=== PATIENT | male | born 1935 | race Caucasian/White ===

== ENCOUNTER 2021-09-01 04:24 | Inpatient (IN) ==
[2021-09-01] MEDS ORDERED: Tdap (Boostrix) Vaccine 0.5 ML SYRINGE IM ONE (04:52)
[2021-09-01] MEDS ORDERED: *HR* FentaNYL (PF) 100 MCG/2 ML VIAL IVP ONE ×2 (04:52→06:11)
[2021-09-01 05:16] LABS: Basophils % 0.4 %; Eosinophils # 0.1 K/mcL (0.0-0.6); Eosinophils % 2.9 %; Hematocrit 37.2 % (37.5-50.1); Hemoglobin 12.5 g/dL (12.9-16.9); Immature Granulocytes % 0.4 % (0-4); Lymphocytes # 1.2 K/mcL (0.6-4.6); Lymphocytes % 24.2 %; Mean Corpuscular HGB Conc 33.6 g/dL (31.6-35.5); Mean Corpuscular Hemoglobin 34.5 pg (28.0-33.3); Mean Corpuscular Volume 102.8 fL (83.0-100.0); Mean Platelet Volume 10.2 fL (9.4-12.4); Monocytes # 0.3 K/mcL (0.0-1.3); Neutrophils # 3.1 K/mcL (1.6-8.9); Platelet Count 101 K/mcL (140-400); Red Blood Count 3.62 M/mcL (4.19-5.50); Red Cell Distribution Width 12.8 % (11.5-14.5); Segmented Neutrophils % 65.1 %; White Blood Count 4.8 K/mcL (4.3-11.1)
[2021-09-01 05:31] LABS: INR 2.1; Prothrombin Time 23.7 Seconds (9.4-12.1)
[2021-09-01 05:33] LABS: Activated Partial Thrombo Time 36.7 Seconds (26.0-36.0)
[2021-09-01 05:37] LABS: Alanine Aminotransferase 11 Units/L (7-52); Albumin 4.2 g/dL (3.5-5.7); Albumin/Globulin Ratio 2.2 (1.1-2.2); Alkaline Phosphatase 63 Units/L (34-104); Aspartate Amino Transferase 17 Units/L (13-39); BUN/Creatinine Ratio 12 (6-26); Bilirubin,Direct 0.2 mg/dL (0.0-0.2); Bilirubin,Indirect 0.7 mg/dL (0.0-1.0); Bilirubin,Total 0.9 mg/dL (0.3-1.0); Blood Urea Nitrogen 13 mg/dL (8-23); Calcium 9.5 mg/dL (8.6-10.3); Carbon Dioxide 28 mEq/L (23-29); Chloride 104 mEq/L (98-107); Globulin 1.9 g/dL (2.4-3.5); Glucose 145 mg/dL (70-105); Osmolality,Calculated 289 (280-300); Potassium 3.5 mEq/L (3.5-5.1); Sodium 138 mEq/L (136-145); Total Protein 6.1 g/dL (6.4-8.9); Troponin I < 0.03 ng/mL (< 0.04); eGFR For African Americans > 60 (> 60); eGFR For Non-African Americans > 60 (> 60)
[2021-09-01] MEDS ORDERED: *HR* HYDROcodone/Acet 5/325 mg TABLET PO PRN (08:38)
[2021-09-01] MEDS ORDERED: Ondansetron 4 MG/2 ML VIAL IVP PRN (08:38)
[2021-09-01] MEDS ORDERED: Acetaminophen 325 MG TABLET PO PRN (08:38)
[2021-09-01] MEDS ORDERED: Naloxone 0.4 MG/ML INJ IVP PRN (08:38)
[2021-09-01] MEDS ORDERED: Melatonin 3 MG TABLET PO PRN (08:38)
[2021-09-01] MEDS: 0.9 % Sodium Chloride 1,000 ML IVC SCH (10:08)
[2021-09-01] MEDS: *HR* OxyCODONE Immed Rel 5 MG TABLET PO PRN ×2 (10:08→18:27)
[2021-09-01] MEDS ORDERED: Perflutren Lipid Microsphere 1.3 ML in 0.9 % Sodium Chloride 8.7 ML IVP PRN (11:31)
[2021-09-01] MEDS ORDERED: *HR* HYDROmorphone (PF) 1 MG/ML SYRINGE IVP ONE (14:15)
[2021-09-01] MEDS ORDERED: Nitroglycerin 0.4 MG TAB.SUBL SL PRN (18:09)
[2021-09-01] MEDS ORDERED: Acetaminophen IV 1,000 MG/100 ML BAG IVPB ONE (18:29)
[2021-09-01] MEDS: traZODone 50 MG TABLET PO SCH (21:19)
[2021-09-01] MEDS: clonazePAM 0.5 MG TABLET PO SCH (21:19)
[2021-09-01] MEDS: Levothyroxine 25 MCG TABLET PO SCH (21:19)
[2021-09-02] MEDS: *HR* OxyCODONE Immed Rel 5 MG TABLET PO PRN (00:29)
[2021-09-02] MEDS: 0.9 % Sodium Chloride 1,000 ML IVC SCH (02:24)
[2021-09-02 06:08] LABS: Basophils % 0.4 %; Eosinophils % 0.8 %; Immature Granulocytes % 0.4 % (0-4); Mean Corpuscular Hemoglobin 34.8 pg (28.0-33.3); Red Cell Distribution Width 12.9 % (11.5-14.5)
[2021-09-02 06:10] LABS: Hematocrit 26.2 % (37.5-50.1); Hemoglobin 8.7 g/dL (12.9-16.9); Immature Platelets 4.5 % (1.1-6.1); Lymphocytes # 0.8 K/mcL (0.6-4.6); Lymphocytes % 15.4 %; Mean Corpuscular HGB Conc 33.2 g/dL (31.6-35.5); Mean Corpuscular Volume 104.8 fL (83.0-100.0); Mean Platelet Volume 10.7 fL (9.4-12.4); Monocytes # 0.7 K/mcL (0.0-1.3); Monocytes % 13.5 %; Neutrophils # 3.7 K/mcL (1.6-8.9); Segmented Neutrophils % 69.5 %; White Blood Count 5.3 K/mcL (4.3-11.1)
[2021-09-02 06:18] LABS: INR 1.5; Prothrombin Time 16.2 Seconds (9.4-12.1)
[2021-09-02 06:49] LABS: Platelet Count 86 K/mcL (140-400)
[2021-09-02 06:51] LABS: Platelet Estimate Slight Decrease (Normal)
[2021-09-02 08:03] LABS: Alanine Aminotransferase 10 Units/L (7-52); Albumin 3.4 g/dL (3.5-5.7); Albumin/Globulin Ratio 2.3 (1.1-2.2); Alkaline Phosphatase 42 Units/L (34-104); Aspartate Amino Transferase 22 Units/L (13-39); BUN/Creatinine Ratio 19 (6-26); Bilirubin,Total 1.2 mg/dL (0.3-1.0); Blood Urea Nitrogen 18 mg/dL (8-23); Calcium 8.8 mg/dL (8.6-10.3); Carbon Dioxide 26 mEq/L (23-29); Chloride 105 mEq/L (98-107); Chol/HDL Ratio 2.2 (0-4.9); Cholesterol 63 mg/dL (< 200); Globulin 1.5 g/dL (2.4-3.5); Glucose 120 mg/dL (70-105); HDL Cholesterol 29 mg/dL (40-59); LDL Cholesterol,Calculated 22 mg/dL (< 100); Magnesium 1.8 mg/dL (1.6-2.6); Osmolality,Calculated 285 (280-300); Potassium 3.7 mEq/L (3.5-5.1); Sodium 136 mEq/L (136-145); Total Protein 4.9 g/dL (6.4-8.9); Triglycerides 60 mg/dL (< 150); eGFR For African Americans > 60 (> 60); eGFR For Non-African Americans > 60 (> 60)
[2021-09-02] MEDS ORDERED: DilTIAZem CD (24hr) 240 MG CAP.ER.24H PO SCH (09:00)
[2021-09-02] MEDS ORDERED: lisinopriL 20 MG TABLET PO SCH (09:00)
[2021-09-02] MEDS: Cholecalciferol (D-3) 1,000 UNIT (25MCG) TABLET PO SCH (09:04)
[2021-09-02] MEDS: clonazePAM 0.5 MG TABLET PO SCH ×2 (09:04→21:41)
[2021-09-02 09:26] LABS: Hematocrit 26.1 % (37.5-50.1); Hemoglobin 8.7 g/dL (12.9-16.9)
[2021-09-02 10:32] LABS: % Iron Saturation 14 % (20-55); Ferritin 77 ng/mL (20-250); Iron 42 mcg/dL (65-175); Transferrin 207 mg/dL (203-362)
[2021-09-02] MEDS ORDERED: *HR* Propofol 200 MG/20 ML VIAL IVP ONE (10:44)
[2021-09-02] MEDS ORDERED: *HR* FentaNYL (PF) 100 MCG/2 ML VIAL ONE (10:44)
[2021-09-02] MEDS ORDERED: Lidocaine -MPF 2% 2 ML VIAL ONE ×2 (10:50→11:14)
[2021-09-02] MEDS ORDERED: *HR* Rocuronium Bromide 50 MG/5 ML VIAL ONE (10:50)
[2021-09-02] MEDS ORDERED: Ondansetron 4 MG/2 ML VIAL ONE (10:50)
[2021-09-02] MEDS ORDERED: *HR* Phenylephrine 10 MG/ML VIAL ONE (10:58)
[2021-09-02] MEDS ORDERED: Heparin 1,000 UNITS/500 mL 500 ML ONE (11:07)
[2021-09-02] MEDS ORDERED: CeFAZolin Syr 2,000MG/20 ML 2,000 MG/20 ML SYRINGE IVPB ONE (11:35)
[2021-09-02] MEDS ORDERED: *HR* Etomidate 40 MG/20 ML VIAL IVP ONE (11:39)
[2021-09-02] MEDS ORDERED: Ringers Solution, Lactated 1,000 ML IVC SCH (11:45)
[2021-09-02] MEDS ORDERED: *HR* Vasopressin 20 UNIT/ML VIAL ONE (12:30)
[2021-09-02] MEDS ORDERED: Sugammadex Sodium 200 MG/2 ML VIAL IV ONE (13:18)
[2021-09-02] MEDS ORDERED: *HR* OxyCODONE Immed Rel 5 MG TABLET PO PRN (13:32)
[2021-09-02] MEDS ORDERED: Acetaminophen 325 MG TABLET PO PRN (13:32)
[2021-09-02] MEDS ORDERED: Ondansetron 4 MG/2 ML VIAL IVP PRN ×2 (13:32→14:01)
[2021-09-02] MEDS ORDERED: Albuterol 2.5 MG/3 ML NEBULIZER IH PRN (14:01)
[2021-09-02] MEDS ORDERED: Naloxone 0.4 MG/ML INJ IVP PRN (14:01)
[2021-09-02] MEDS ORDERED: *HR* Meperidine 25 MG/ML SYRINGE IVP PRN (14:01)
[2021-09-02] MEDS: *HR* HYDROmorphone PF 0.5 MG/0.5 ML SYRINGE IVP PRN ×4 (14:09→14:39)
[2021-09-02] MEDS: *HR* Metoprolol 5 MG/5 ML VIAL IVP PRN ×2 (14:20→14:32)
[2021-09-02] MEDS: CeFAZolin 2 GM/120 ML BAG IVPB SCH (16:56)
[2021-09-02 17:09] LABS: Hematocrit 24.8 % (37.5-50.1)
[2021-09-02 17:11] LABS: Hemoglobin 8.2 g/dL (12.9-16.9)
[2021-09-02 17:52] LABS: Folate 10.7 ng/mL (3.0-16.0)
[2021-09-02] MEDS: traZODone 50 MG TABLET PO SCH (21:41)
[2021-09-02] MEDS: Levothyroxine 25 MCG TABLET PO SCH (21:41)
[2021-09-02 22:59] LABS: Hematocrit 22.7 % (37.5-50.1); Hemoglobin 7.5 g/dL (12.9-16.9)
[2021-09-03] MEDS: CeFAZolin 2 GM/120 ML BAG IVPB SCH (00:11)
[2021-09-03] MEDS: *HR* OxyCODONE Immed Rel 5 MG TABLET PO PRN (03:36)
[2021-09-03 03:47] LABS: Hematocrit 24.8 % (37.5-50.1)
[2021-09-03 03:49] LABS: Hemoglobin 8.2 g/dL (12.9-16.9); Immature Platelets 6.2 % (1.1-6.1); Mean Corpuscular HGB Conc 33.1 g/dL (31.6-35.5); Mean Corpuscular Hemoglobin 34.7 pg (28.0-33.3); Mean Corpuscular Volume 105.1 fL (83.0-100.0); Red Blood Count 2.36 M/mcL (4.19-5.50); White Blood Count 9.1 K/mcL (4.3-11.1)
[2021-09-03 03:59] LABS: INR 1.2; Prothrombin Time 13.8 Seconds (9.4-12.1)
[2021-09-03 04:41] LABS: BUN/Creatinine Ratio 20 (6-26); Blood Urea Nitrogen 21 mg/dL (8-23); Calcium 9.1 mg/dL (8.6-10.3); Carbon Dioxide 27 mEq/L (23-29); Chloride 103 mEq/L (98-107); Glucose 150 mg/dL (70-105); Osmolality,Calculated 286 (280-300); Potassium 4.8 mEq/L (3.5-5.1); Sodium 135 mEq/L (136-145); eGFR For African Americans > 60 (> 60); eGFR For Non-African Americans > 60 (> 60)
[2021-09-03] MEDS: Cholecalciferol (D-3) 1,000 UNIT (25MCG) TABLET PO SCH (10:58)
[2021-09-03] MEDS: clonazePAM 0.5 MG TABLET PO SCH ×2 (10:59→21:57)
[2021-09-03] MEDS ORDERED: Furosemide 20 MG TABLET PO ONE (17:46)
[2021-09-03] MEDS ORDERED: *HR* Warfarin 3 MG TABLET PO SCH (18:00)
[2021-09-03] MEDS ORDERED: *HR* Warfarin 0.5 MG TABLET PO SCH (18:00)
[2021-09-03] MEDS: *HR* HYDROcodone/Acet 5/325 mg TABLET PO PRN (21:57)
[2021-09-03] MEDS: Levothyroxine 25 MCG TABLET PO SCH (21:58)
[2021-09-03] MEDS: traZODone 50 MG TABLET PO SCH (21:58)
[2021-09-03] MEDS ORDERED: 0.9 % Sodium Chloride 1,000 ML IVC ONE (23:05)
[2021-09-04] MEDS: *HR* HYDROcodone/Acet 5/325 mg TABLET PO PRN ×2 (02:17→20:22)
[2021-09-04 05:11] LABS: Mean Corpuscular HGB Conc 33.3 g/dL (31.6-35.5); Mean Corpuscular Hemoglobin 35.1 pg (28.0-33.3); Mean Corpuscular Volume 105.3 fL (83.0-100.0); Red Blood Count 1.71 M/mcL (4.19-5.50)
[2021-09-04 05:13] LABS: Immature Platelets 5.5 % (1.1-6.1); Mean Platelet Volume 10.5 fL (9.4-12.4); White Blood Count 5.8 K/mcL (4.3-11.1)
[2021-09-04 05:18] LABS: INR 1.3
[2021-09-04 05:29] LABS: BUN/Creatinine Ratio 23 (6-26); Blood Urea Nitrogen 22 mg/dL (8-23); Calcium 8.3 mg/dL (8.6-10.3); Carbon Dioxide 32 mEq/L (23-29); Chloride 104 mEq/L (98-107); Glucose 117 mg/dL (70-105); Osmolality,Calculated 288 (280-300); Potassium 4.5 mEq/L (3.5-5.1); Sodium 137 mEq/L (136-145); eGFR For African Americans > 60 (> 60); eGFR For Non-African Americans > 60 (> 60)
[2021-09-04] MEDS ORDERED: 0.9 % Sodium Chloride 250 ML IVC SCH (05:30)
[2021-09-04] MEDS ORDERED: 0.9 % Sodium Chloride 250 ML ONE (06:03)
[2021-09-04] MEDS: Cholecalciferol (D-3) 1,000 UNIT (25MCG) TABLET PO SCH (08:33)
[2021-09-04] MEDS: clonazePAM 0.5 MG TABLET PO SCH ×2 (08:33→20:22)
[2021-09-04] MEDS ORDERED: *HR* Warfarin 1 MG TABLET PO SCH (11:15)
[2021-09-04] MEDS ORDERED: Warfarin perPT PO PRN (11:51)
[2021-09-04] MEDS: CLEAR EYES NATURAL TEARS 15 ML BOTTLE BOTH EYES SCH ×2 (16:10→20:22)
[2021-09-04] MEDS ORDERED: *HR* Warfarin 3 MG TABLET PO SCH (18:00)
[2021-09-04] MEDS ORDERED: Warfarin 0.5 MG, Warfarin 3 MG PO ONE (18:00)
[2021-09-04 19:13] LABS: Hematocrit 24.1 % (37.5-50.1); Hemoglobin 8.1 g/dL (12.9-16.9)
[2021-09-04] MEDS: Levothyroxine 25 MCG TABLET PO SCH (20:22)
[2021-09-04] MEDS: traZODone 50 MG TABLET PO SCH (20:22)
[2021-09-05] MEDS: *HR* HYDROcodone/Acet 5/325 mg TABLET PO PRN (01:57)
[2021-09-05 05:30] LABS: Hemoglobin 7.9 g/dL (12.9-16.9)
[2021-09-05 05:32] LABS: Immature Platelets 4.3 % (1.1-6.1); Mean Corpuscular HGB Conc 32.9 g/dL (31.6-35.5); Mean Corpuscular Hemoglobin 32.8 pg (28.0-33.3); Mean Corpuscular Volume 99.6 fL (83.0-100.0); Mean Platelet Volume 10.3 fL (9.4-12.4); Red Blood Count 2.41 M/mcL (4.19-5.50); Red Cell Distribution Width 16.5 % (11.5-14.5); White Blood Count 4.8 K/mcL (4.3-11.1)
[2021-09-05 05:36] LABS: INR 1.2; Prothrombin Time 13.9 Seconds (9.4-12.1)
[2021-09-05 05:45] LABS: BUN/Creatinine Ratio 22 (6-26); Blood Urea Nitrogen 19 mg/dL (8-23); Calcium 8.6 mg/dL (8.6-10.3); Carbon Dioxide 31 mEq/L (23-29); Chloride 103 mEq/L (98-107); Glucose 112 mg/dL (70-105); Osmolality,Calculated 285 (280-300); Potassium 4.3 mEq/L (3.5-5.1); Sodium 136 mEq/L (136-145); eGFR For African Americans > 60 (> 60); eGFR For Non-African Americans > 60 (> 60)
[2021-09-05] MEDS: CLEAR EYES NATURAL TEARS 15 ML BOTTLE BOTH EYES SCH ×3 (08:25→16:42)
[2021-09-05] MEDS: clonazePAM 0.5 MG TABLET PO SCH (08:27)
[2021-09-05] MEDS: Cholecalciferol (D-3) 1,000 UNIT (25MCG) TABLET PO SCH (08:28)
[2021-09-05 12:53] LABS: Influenza A PCR Negative (Negative); Influenza B PCR Negative (Negative); Resp. Syncytial Virus PCR Negative (Negative)
[2021-09-05 12:56] LABS: SARS-CoV-2 by PCR (In House) Negative (Negative)
[2021-09-05 15:35] VITALS: BP 114/71; PULSE 109; TEMP 98.2; O2SAT 97
[2021-09-05] MEDS ORDERED: *HR* Metoprolol 5 MG/5 ML VIAL IVP ONE (16:02)
[2021-09-05] MEDS ORDERED: Warfarin 0.5 MG, Warfarin 3 MG PO ONE (18:00)
== END 2021-09-05 17:16 | DRG 481 ==
LOC: 4WAOSI 04:24 → EMEROOARM 04:24 → 4WAOSI 09:31
PROVIDERS: ADMIT Hospitalist; ATTEND Hospitalist

== ENCOUNTER 2021-12-22 18:44 | Inpatient (IN) ==
[2021-12-22] MEDS ORDERED: methylPREDNISolone 125 MG/2 ML VIAL IVP ONE (23:23)
[2021-12-22] MEDS ORDERED: Ipratropium/Albuterol Neb 3 ML IH ONE (23:23)
[2021-12-22 23:50] LABS: Basophils % 0.4 %; Eosinophils % 0.5 %; Hematocrit 36.4 % (37.5-50.1); Hemoglobin 11.7 g/dL (12.9-16.9); Immature Granulocytes % 0.4 % (0-4); Lymphocytes # 0.9 K/mcL (0.6-4.6); Lymphocytes % 14.9 %; Mean Corpuscular HGB Conc 32.1 g/dL (31.6-35.5); Mean Corpuscular Hemoglobin 32.6 pg (28.0-33.3); Mean Corpuscular Volume 101.4 fL (83.0-100.0); Mean Platelet Volume 9.6 fL (9.4-12.4); Monocytes # 0.6 K/mcL (0.0-1.3); Monocytes % 11.1 %; Neutrophils # 4.2 K/mcL (1.6-8.9); Platelet Count 114 K/mcL (140-400); Red Blood Count 3.59 M/mcL (4.19-5.50); Red Cell Distribution Width 13.9 % (11.5-14.5); Segmented Neutrophils % 72.7 %; White Blood Count 5.7 K/mcL (4.3-11.1)
[2021-12-22 23:58] LABS: INR 2.6; Prothrombin Time 28.8 Seconds (9.4-12.1)
[2021-12-23 00:11] LABS: Calcium 9.8 mg/dL (8.6-10.3); Potassium 4.2 mEq/L (3.5-5.1)
[2021-12-23 00:12] LABS: Troponin I 0.03 ng/mL (< 0.04)
[2021-12-23 00:31] LABS: Bacteria,Urine Few per hpf (None-Few); Bilirubin,Urine Negative (Negative); Blood,Urine Negative (Negative); Clarity,Urine Clear (Clear); Color,Urine Yellow (Yellow); Glucose,Urine (UA) Normal (Normal); Ketones,Urine 10 mg/dL (Negative); Leukocyte Esterase,Urine Negative (Negative); Mucus,Urine Few per lpf (None-Few); Nitrite,Urine Negative (Negative); Protein,Urine Trace mg/dL (Neg-Trace); Specific Gravity,Urine 1.024 (1.010-1.025); Squamous Epithelial Cell,Urine Few per hpf (None-Few); WBC,Urine 0-3 per hpf (0-3)
[2021-12-23] MEDS ORDERED: Furosemide 40 MG/4 ML VIAL ONE (04:59)
[2021-12-23] MEDS ORDERED: Furosemide 40 MG/4 ML VIAL IVP ONE (05:00)
[2021-12-23] MEDS ORDERED: Melatonin 3 MG TABLET PO PRN (05:36)
[2021-12-23] MEDS ORDERED: Acetaminophen 325 MG TABLET PO PRN (05:36)
[2021-12-23] MEDS ORDERED: Naloxone 0.4 MG/ML INJ IVP PRN (05:36)
[2021-12-23] MEDS ORDERED: Ondansetron 4 MG/2 ML VIAL IVP PRN (05:36)
[2021-12-23] MEDS ORDERED: *HR* Promethazine 25 MG/ML VIAL IM PRN (05:36)
[2021-12-23] MEDS ORDERED: Ipratropium/Albuterol Neb 3 ML IH PRN (05:38)
[2021-12-23 08:41] LABS: Hematocrit 37.1 % (37.5-50.1); Hemoglobin 12.2 g/dL (12.9-16.9); Immature Granulocytes % 0.4 % (0-4); Immature Platelets 3.6 % (1.1-6.1); Lymphocytes # 0.3 K/mcL (0.6-4.6); Mean Corpuscular HGB Conc 32.9 g/dL (31.6-35.5); Mean Corpuscular Hemoglobin 32.6 pg (28.0-33.3); Mean Corpuscular Volume 99.2 fL (83.0-100.0); Mean Platelet Volume 9.6 fL (9.4-12.4); Monocytes # 0.1 K/mcL (0.0-1.3); Monocytes % 1.2 %; Neutrophils # 4.5 K/mcL (1.6-8.9); Platelet Count 113 K/mcL (140-400); Red Blood Count 3.74 M/mcL (4.19-5.50); Red Cell Distribution Width 13.7 % (11.5-14.5); Segmented Neutrophils % 91.4 %; White Blood Count 4.9 K/mcL (4.3-11.1)
[2021-12-23 08:44] LABS: INR 2.5; Prothrombin Time 27.3 Seconds (9.4-12.1)
[2021-12-23 09:00] LABS: Chol/HDL Ratio 2.6 (0-4.9)
[2021-12-23 09:01] LABS: Calcium 9.7 mg/dL (8.6-10.3); Potassium 3.7 mEq/L (3.5-5.1)
[2021-12-23] MEDS ORDERED: Artificial Tears SOLN 15 ML BOTTLE BOTH EYES PRN (17:27)
[2021-12-23] MEDS ORDERED: Nitroglycerin 0.4 MG TAB.SUBL SL PRN (17:27)
[2021-12-23] MEDS ORDERED: polyethylene glycoL 3350 17 GM POWD.PACK PO PRN (17:27)
[2021-12-23] MEDS: Furosemide 40 MG/4 ML VIAL IVP SCH (17:54)
[2021-12-23] MEDS ORDERED: *HR* Warfarin 5 MG TABLET PO ONE (18:00)
[2021-12-23] MEDS ORDERED: Warfarin perPT PO PRN (18:00)
[2021-12-23] MEDS: traZODone 50 MG TABLET PO SCH (21:20)
[2021-12-23] MEDS: clonazePAM 0.5 MG TABLET PO SCH (21:20)
[2021-12-23] MEDS: Levothyroxine 25 MCG TABLET PO SCH (21:20)
[2021-12-24 08:27] LABS: Eosinophils % 0.1 %; Hematocrit 35.9 % (37.5-50.1); Hemoglobin 11.6 g/dL (12.9-16.9); Immature Granulocytes % 0.4 % (0-4); Lymphocytes # 0.6 K/mcL (0.6-4.6); Lymphocytes % 9.2 %; Mean Corpuscular HGB Conc 32.3 g/dL (31.6-35.5); Mean Corpuscular Hemoglobin 32.6 pg (28.0-33.3); Mean Corpuscular Volume 100.8 fL (83.0-100.0); Mean Platelet Volume 9.7 fL (9.4-12.4); Monocytes # 0.8 K/mcL (0.0-1.3); Monocytes % 11.4 %; Neutrophils # 5.4 K/mcL (1.6-8.9); Platelet Count 116 K/mcL (140-400); Red Blood Count 3.56 M/mcL (4.19-5.50); Red Cell Distribution Width 13.8 % (11.5-14.5); Segmented Neutrophils % 78.9 %; White Blood Count 6.9 K/mcL (4.3-11.1)
[2021-12-24 08:35] LABS: Prothrombin Time 32.7 Seconds (9.4-12.1)
[2021-12-24 08:46] LABS: Calcium 9.5 mg/dL (8.6-10.3); Potassium 3.9 mEq/L (3.5-5.1)
[2021-12-24] MEDS: Aspirin Enteric Coated 81 MG Tablet PO SCH (09:12)
[2021-12-24] MEDS: clonazePAM 0.5 MG TABLET PO SCH ×2 (09:12→19:36)
[2021-12-24] MEDS: Furosemide 40 MG/4 ML VIAL IVP SCH ×2 (09:12→16:10)
[2021-12-24] MEDS: Cyanocobalamin (B-12) 1,000 MCG TABLET PO SCH (09:12)
[2021-12-24] MEDS: DilTIAZem CD (24hr) 120 MG CAP.ER.24H PO SCH (09:12)
[2021-12-24] MEDS: Multivit/Ca/Min/Fe/FA 1 TAB TABLET PO SCH (09:12)
[2021-12-24] MEDS: Cholecalciferol (D-3) 1,000 UNIT (25MCG) TABLET PO SCH (09:13)
[2021-12-24] MEDS ORDERED: *HR* Warfarin 2.5 MG TABLET PO ONE (18:00)
[2021-12-24] MEDS: Levothyroxine 25 MCG TABLET PO SCH (19:36)
[2021-12-24] MEDS: traZODone 50 MG TABLET PO SCH (19:36)
[2021-12-25 03:11] LABS: Basophils % 0.3 %; Eosinophils # 0.1 K/mcL (0.0-0.6); Eosinophils % 1.5 %; Hematocrit 37.7 % (37.5-50.1); Hemoglobin 12.1 g/dL (12.9-16.9); Immature Granulocytes % 0.2 % (0-4); Lymphocytes % 16.1 %; Mean Corpuscular HGB Conc 32.1 g/dL (31.6-35.5); Mean Corpuscular Hemoglobin 32.3 pg (28.0-33.3); Mean Corpuscular Volume 100.5 fL (83.0-100.0); Mean Platelet Volume 9.9 fL (9.4-12.4); Monocytes # 0.7 K/mcL (0.0-1.3); Monocytes % 10.8 %; Neutrophils # 4.4 K/mcL (1.6-8.9); Platelet Count 134 K/mcL (140-400); Red Blood Count 3.75 M/mcL (4.19-5.50); Red Cell Distribution Width 13.6 % (11.5-14.5); Segmented Neutrophils % 71.1 %; White Blood Count 6.2 K/mcL (4.3-11.1)
[2021-12-25 03:19] LABS: INR 3.1; Prothrombin Time 33.9 Seconds (9.4-12.1)
[2021-12-25 03:30] LABS: Calcium 9.3 mg/dL (8.6-10.3); Magnesium 2.1 mg/dL (1.6-2.6); Potassium 3.8 mEq/L (3.5-5.1)
[2021-12-25] MEDS: Multivit/Ca/Min/Fe/FA 1 TAB TABLET PO SCH (08:28)
[2021-12-25] MEDS: Aspirin Enteric Coated 81 MG Tablet PO SCH (08:28)
[2021-12-25] MEDS: DilTIAZem CD (24hr) 120 MG CAP.ER.24H PO SCH (08:29)
[2021-12-25] MEDS: Cyanocobalamin (B-12) 1,000 MCG TABLET PO SCH (08:30)
[2021-12-25] MEDS: Furosemide 40 MG/4 ML VIAL IVP SCH ×2 (08:30→17:12)
[2021-12-25] MEDS: clonazePAM 0.5 MG TABLET PO SCH ×2 (08:30→19:25)
[2021-12-25] MEDS: Cholecalciferol (D-3) 1,000 UNIT (25MCG) TABLET PO SCH (08:30)
[2021-12-25] MEDS: Doxycycline 100 MG CAPSULE PO SCH ×2 (10:47→19:25)
[2021-12-25] MEDS: Erythromycin OPTH Oint BOTH EYES SCH ×3 (11:53→19:25)
[2021-12-25] MEDS ORDERED: *HR* Warfarin 2 MG TABLET PO ONE (18:00)
[2021-12-25] MEDS: Levothyroxine 25 MCG TABLET PO SCH (19:25)
[2021-12-25] MEDS: traZODone 50 MG TABLET PO SCH (19:25)
[2021-12-26] MEDS ORDERED: GuaiFENesin Liq 200 MG/10 ML UDC PO PRN (00:54)
[2021-12-26 03:11] LABS: Basophils % 0.4 %; Eosinophils # 0.2 K/mcL (0.0-0.6); Hematocrit 37.4 % (37.5-50.1); Hemoglobin 12.1 g/dL (12.9-16.9); Immature Granulocytes % 0.4 % (0-4); Lymphocytes # 0.9 K/mcL (0.6-4.6); Lymphocytes % 16.8 %; Mean Corpuscular HGB Conc 32.4 g/dL (31.6-35.5); Mean Corpuscular Hemoglobin 32.5 pg (28.0-33.3); Mean Corpuscular Volume 100.5 fL (83.0-100.0); Mean Platelet Volume 9.7 fL (9.4-12.4); Monocytes # 0.6 K/mcL (0.0-1.3); Monocytes % 11.9 %; Neutrophils # 3.5 K/mcL (1.6-8.9); Platelet Count 136 K/mcL (140-400); Red Blood Count 3.72 M/mcL (4.19-5.50); Red Cell Distribution Width 13.4 % (11.5-14.5); Segmented Neutrophils % 66.5 %; White Blood Count 5.2 K/mcL (4.3-11.1)
[2021-12-26 03:16] LABS: INR 2.4; Prothrombin Time 26.9 Seconds (9.4-12.1)
[2021-12-26 03:26] LABS: Calcium 9.5 mg/dL (8.6-10.3); Potassium 3.7 mEq/L (3.5-5.1)
[2021-12-26] MEDS: Cholecalciferol (D-3) 1,000 UNIT (25MCG) TABLET PO SCH (08:11)
[2021-12-26] MEDS: Doxycycline 100 MG CAPSULE PO SCH ×2 (08:11→22:39)
[2021-12-26] MEDS: clonazePAM 0.5 MG TABLET PO SCH ×2 (08:12→22:39)
[2021-12-26] MEDS: Erythromycin OPTH Oint BOTH EYES SCH ×3 (08:12→23:01)
[2021-12-26] MEDS: Aspirin Enteric Coated 81 MG Tablet PO SCH (08:12)
[2021-12-26] MEDS: Multivit/Ca/Min/Fe/FA 1 TAB TABLET PO SCH (08:12)
[2021-12-26] MEDS: DilTIAZem CD (24hr) 120 MG CAP.ER.24H PO SCH (08:12)
[2021-12-26] MEDS: Cyanocobalamin (B-12) 1,000 MCG TABLET PO SCH (08:12)
[2021-12-26] MEDS: Furosemide 40 MG/4 ML VIAL IVP SCH ×2 (09:11→17:49)
[2021-12-26 16:02] VITALS: O2SAT 96
[2021-12-26] MEDS ORDERED: *HR* Warfarin 5 MG TABLET PO ONE (18:00)
[2021-12-26] MEDS: Levothyroxine 25 MCG TABLET PO SCH (22:39)
[2021-12-26] MEDS: traZODone 50 MG TABLET PO SCH (22:39)
[2021-12-27 01:41] LABS: Basophils % 0.2 %; Eosinophils # 0.2 K/mcL (0.0-0.6); Eosinophils % 4.2 %; Hematocrit 36.4 % (37.5-50.1); Hemoglobin 11.8 g/dL (12.9-16.9); Immature Granulocytes % 0.4 % (0-4); Lymphocytes # 0.9 K/mcL (0.6-4.6); Lymphocytes % 16.3 %; Mean Corpuscular HGB Conc 32.4 g/dL (31.6-35.5); Mean Corpuscular Hemoglobin 32.3 pg (28.0-33.3); Mean Corpuscular Volume 99.7 fL (83.0-100.0); Mean Platelet Volume 9.7 fL (9.4-12.4); Monocytes # 0.7 K/mcL (0.0-1.3); Monocytes % 12.4 %; Neutrophils # 3.8 K/mcL (1.6-8.9); Platelet Count 127 K/mcL (140-400); Red Blood Count 3.65 M/mcL (4.19-5.50); Red Cell Distribution Width 13.3 % (11.5-14.5); Segmented Neutrophils % 66.5 %; White Blood Count 5.7 K/mcL (4.3-11.1)
[2021-12-27 01:54] LABS: INR 2.1; Prothrombin Time 23.2 Seconds (9.4-12.1)
[2021-12-27 02:08] LABS: Calcium 9.6 mg/dL (8.6-10.3); Potassium 3.7 mEq/L (3.5-5.1)
[2021-12-27 07:32] VITALS: BP 138/82; PULSE 86; TEMP 97.8
[2021-12-27] MEDS ORDERED: Furosemide 40 MG TABLET PO SCH (08:00)
[2021-12-27] MEDS: Cholecalciferol (D-3) 1,000 UNIT (25MCG) TABLET PO SCH (08:51)
[2021-12-27] MEDS: Cyanocobalamin (B-12) 1,000 MCG TABLET PO SCH (08:51)
[2021-12-27] MEDS: DilTIAZem CD (24hr) 120 MG CAP.ER.24H PO SCH (08:51)
[2021-12-27] MEDS: Multivit/Ca/Min/Fe/FA 1 TAB TABLET PO SCH (08:52)
[2021-12-27] MEDS: clonazePAM 0.5 MG TABLET PO SCH (08:52)
[2021-12-27] MEDS: Doxycycline 100 MG CAPSULE PO SCH (08:52)
[2021-12-27] MEDS: Aspirin Enteric Coated 81 MG Tablet PO SCH (08:52)
[2021-12-27] MEDS: Erythromycin OPTH Oint BOTH EYES SCH (09:09)
[2021-12-27 10:08] LABS: Influenza A PCR Negative (Negative); Influenza B PCR Negative (Negative); Resp. Syncytial Virus PCR Negative (Negative)
[2021-12-27 10:09] LABS: SARS-CoV-2 by PCR (In House) Negative (Negative)
[2021-12-27] MEDS ORDERED: *HR* Warfarin 5 MG TABLET PO ONE (18:00)
== END 2021-12-27 12:15 | DRG 291 ==
LOC: 4WAOSI 18:44 → EMEROOARM 18:44 → SUATTDRO 12-23 06:11 → 4WAOSI 12-23 06:53 → SUATTDRO 12-24 11:06 → 3ANU 12-25 22:22
PROVIDERS: ADMIT Internal Medicine; ATTEND Hospitalist